=== PATIENT | male | born 1980 | race Caucasian/White ===

== ENCOUNTER 2022-01-22 18:19 | Emergency (ER) | payer OTHER, SELFPAY ==
[2022-01-22 18:40] VITALS: BP 123/79; PULSE 78; RESP 16; TEMP 36.7; O2SAT 97; BMI 28.5
--- NOTE | 2022-01-22 18:52 | W.ED.WOUNDLC ---
HPI - Wound/Laceration General: Chief Complaint: Wound/Laceration Stated Complaint: Fish hook in foot Time Seen by Provider: 01/22/22 18:51 History of Present Illness: Patient is a 41-year-old male comes in the ED with fishhook in right foot. Patient got fishhook caught on his right third toe couple hours prior to arrival. Patient states that he stepped on the fishhook causing it to get stuck in his third toe right foot. He says the fishhook was an old used fishhook. He is up-to-date on his tetanus and states he got a within the last couple years. Associated symptoms: Denies chills, fever(s), nausea or vomiting Review of Systems Const: Denies: fever(s), chills or fatigue Eyes: Denies: change in vision or eye discomfort ENMT: Denies: throat pain, odynophagia, nasal discharge or nasal congestion Card: Denies: chest pain, palpitations, edema, swelling of feet/ankles, dyspnea on exertion or orthopnea Resp: Denies: dyspnea, productive cough or non-productive cough GI: Denies: abdominal pain, nausea, vomiting, diarrhea, constipation or hematochezia : Denies: flank pain, difficulty urinating, dysuria or hematuria Musc: Denies: neck pain, back pain or extremity swelling Skin/Breast: Reports: other ([place] caught in right foot); Denies: rash or new lesions Neuro: Denies: headache(s), numbness in extremities or weakness in extremities [facility] ED PFSH: Medical History No pertinent family history No pertinent past medical history Physical Exam Const: COMMON NORMALS: patient oriented x3 HENMT: COMMON NORMALS: normocephalic HEAD & SCALP: normocephalic MOUTH: Normal oral and palatal mucosa present THROAT: posterior oropharynx normal and uvula midline Neck/C-Spine: COMMON NORMALS: supple GENERAL: Yes normal visual inspection Resp: COMMON NORMALS: normal respiratory effort, No retractions, No use of accessory muscles and clear to auscultation bilaterally AUSCULTATION: clear to auscultation bilaterally Cardio: COMMON NORMALS: regular rate, regular rhythm, S1 normal heart sound present, S2 normal heart sound present, No gallops present (Cardio), No clicks present (Cardio), No murmurs present (Cardio) and Peripheral pulses 2+ throughout RATE: regular rate RHYTHM: regular rhythm HEART SOUNDS: S1 normal heart sound present and S2 normal heart sound present PERIPHERAL PULSES: Peripheral pulses 2+ throughout GI: COMMON NORMALS: Normal to inspection, nondistended, normoactive bowel sounds present, Soft to palpation, non-tender and no masses PALPATION: Yes Soft to palpation : COMMON NORMALS: Yes no CVA tenderness BLADDER/KIDNEY EXAM: Yes no CVA tenderness Back/Pelvis: COMMON NORMALS: no CVA tenderness Extremity: GENERAL: Yes normal exam except as noted Neuro: COMMON NORMALS: patient oriented x3 GAIT: Yes Normal gait present Skin: GENERAL SKIN EXAM: dry skin Procedures Foreign Body Removal Time Out Performed: yes Site: right and foot (3rd toe) Description of foreign body: fish hook Sedation/Analgesia: other (digital block) Technique: removal with forceps Confirmed by:: direct visualization Complications: none Post-procedure exam: awake, alert Neurovascular: no change from pre-procedure Nerve Block Nerve Block 1: Time out performed: Yes Local Anesthetic: lidocaine 1% Amount of anesthesia used (mL): 3 Side: right Nerve Blocks: digital (Third toe right foot) Procedure Successful: Yes Patient Tolerated Procedure: well Complications: none Course Vital Signs: Vital signs: Vital Signs Temperature 98.1 F 01/22/22 19:54 Pulse Rate 71 01/22/22 19:54 Respiratory Rate 18 01/22/22 19:54 Blood Pressure 119/79 01/22/22 19:54 Pulse Oximetry 98 01/22/22 19:54 Oxygen Delivery Me thod 01/22/22 18:40 MDM - Wound/Laceration Medical Decision Making Patient is a 41-year-old male comes to the ED with a fishhook in right third toe. He is up-to-date on his tetanus. Vitals are stable. Patient's third toe was irrigated extensively with normal saline and digital block was performed with lidocaine 1%. Then using forceps and a wireless communications engineer I was able to successfully remove the fishhook. His toe was irrigated extensively normal saline afterwards and beta iodine wash. He was discharged home with prophylactic prescription for Keflex. Told to follow-up with his PCP in the next week for reevaluation. Patient understood and agreed with plan. Discharge Plan Discharge Patient Disposition: Home Clinical Impression: Fish hook in foot Condition: Stable Prescriptions: New cephalexin 500 mg capsule 500 mg PO Q6H 4 Days Qty: 16 0RF Discharge Orders: Discharge ED (Routine); Ordered 01/22/22 Ordered By: Kleber Rivera Discharge Diet: Regular Discharge Activity: Increase activity as tolerated Patient Instructions: Soft Tissue Foreign Body (ED) Activity Restrictions/Additional Instructions: Follow-up with medical provider as directed In the next 5 to 7 days reevaluation. Clean wound on toe daily with soap and water and apply triple antibiotic ointment on and bandage it. Take medications as prescribed. Return to the ER or your medical provider if condition worsens. Please read and understand discharge instructions. Thank you for choosing [facility] for your healthcare needs today. Please realize this is an emergency room and that we are providing you with a medical screening exam and this may not be complete and all inclusive of all the testing and or work up that you may need to determine your ailment or severity of your illness. It is very important that you follow up as instructed or that you return to the Emergency Department should you have concerns or if your condition changes or worsens in any way. Coding Level of Care Code ED Refinery Operator Reforming Unit for Jose Meehan Exam Comprehensive
[2022-01-22] MEDS: cephALEXin 500 mg Capsule PO (19:48)
[2022-01-22 19:54] VITALS: BP 119/79; PULSE 71; RESP 18; TEMP 36.7; O2SAT 98
== END 2022-01-22 19:56 | disposition home or self-care (01) ==
PROVIDERS: Emergency Provider Physician Assistant
DX: S91.341A Puncture wound with foreign body, right foot, initial encounter (principal); W26.8XXA Contact with other sharp object(s), not elsewhere classified, initial encounter
CPT/HCPCS: 99283